=== PATIENT | female | born 1965 | race Caucasian/White ===

== ENCOUNTER 2018-08-11 12:48 | Observation (INO) ==
[2018-08-11] MEDS ORDERED: 0.9 % Sodium Chloride 1,000 ML IVC ONE (13:05)
[2018-08-11] MEDS ORDERED: Ondansetron ODT 4 MG TAB.RAPDIS SL ONE (13:05)
[2018-08-11] MEDS: Nitroglycerin 0.4 MG TAB.SUBL SL ONE ×2 (13:14→15:37)
[2018-08-11 13:22] LABS: Basophils % 0.3 %; Eosinophils % 0.3 %; Hematocrit 39.8 % (35.3-44.9); Hemoglobin 13.5 g/dL (11.5-15.4); Immature Granulocytes % 0.4 % (0-4); Lymphocytes # 2.4 K/mcL (0.6-4.6); Lymphocytes % 23.9 %; Mean Corpuscular HGB Conc 33.9 g/dL (31.6-35.5); Mean Corpuscular Volume 88.4 fL (83.0-100.0); Mean Platelet Volume 10.1 fL (9.4-12.4); Monocytes # 0.5 K/mcL (0.0-1.3); Monocytes % 5.1 %; Neutrophils # 6.9 K/mcL (1.6-8.9); Platelet Count 283 K/mcL (140-400); Red Cell Distribution Width 13.3 % (11.5-14.5)
[2018-08-11 13:29] LABS: Prothrombin Time 11.2 Seconds (9.4-12.1)
[2018-08-11 13:42] LABS: Troponin I < 0.03 ng/mL (< 0.04)
[2018-08-11 13:44] LABS: BUN/Creatinine Ratio 25 (6-26); Blood Urea Nitrogen 19 mg/dL (6-20); Calcium 9.5 mg/dL (8.6-10.3); Carbon Dioxide 21 mEq/L (23-29); Chloride 108 mEq/L (98-107); Digoxin < 0.3 ng/mL (0.8-2.0); Glucose 113 mg/dL (70-105); Osmolality,Calculated 289 (280-300); Potassium 3.5 mEq/L (3.5-5.1); Sodium 138 mEq/L (136-145); eGFR For Non-African Americans > 60 (> 60)
[2018-08-11] MEDS: Isovue-370 500 ML BOTTLE IVP ONE ×2 (14:19→14:20)
--- NOTE | 2018-08-11 14:55 | Emergency Department Note ---
Disposition Clinical Impression: Chest pain Qualifiers: Chest pain type: unspecified Qualified Code(s): R07.9 - Chest pain, unspecified Disposition: Admitted As Inpatient Condition: Fair Time of Disposition: 15:10 Chest Pain HPI - General Chief Complaint: ED Chest Pain Stated Complaint: CP,SONJA Time Seen by Provider: 08/11/18 12:49 Source: patient Limitations: no limitations Vital Signs Reviewed: Yes Nursing Notes Reviewed: Yes - History of Present Illness HPI Narrative: 53 yo female with PMHx of MS and afib on digoxin presents to the ED with sudden onset chest pain and shortness of breath. She states she was sitting at her desk when she noticed severe sudden onset chest pain radiating into her neck and back. She has never had pain like this before. She first thought it was indigestion but then it worsened. At its worst it is an 8/10, currently it is a 5/10. She feels nauseous and has thrown up. She denies sensory changes or weakness of her limbs. Pt has not recently travelled, has no history of blood clots and is not on hormonal therapy. There is no family history of heart disease, except her mother who had an ND at age 70. Severity scale (1-10): 6 - Related Data Allergies Allergy/AdvReac Type Severity Reaction Status Date / Time codeine Allergy Swelling Verified 08/11/18 12:57 of Lip/Tongue/Throat prochlorperazine Allergy Anxiety Verified 08/11/18 12:57 [From Compazine] Sulfa (Sulfonamide Allergy Rash Verified 08/11/18 12:57 Antibiotics) All systems ED: reviewed and negative except as stated. Review of Systems: As Per HPI Constitutional: Denies: fever, chills, weakness Cardiovascular: Reports: chest pain, dyspnea on exertion. Denies: palpitations, edema, syncope Respiratory: Reports: dyspnea. Denies: cough, wheezes Gastrointestinal: Reports: nausea, vomiting. Denies: abdominal pain, diarrhea, hematemesis, melena, hematochezia Genitourinary: Denies: dysuria, hematuria Musculoskeletal: Reports: back pain, neck pain Integumentary: Denies: rash Neurological: Denies: headache, weakness, numbness, paresthesias Endocrine: Denies: fatigue Chest Pain PMH - Past Medical History Medical history: Reports: atrial fibrillation Psychiatric history: Reports: anxiety - Social History Smoking Status: Never smoker Alcohol use: Reports: none Drug use: Reports: none Physical Exam Pt appears very anxious. No tenderness to palpation of chest or back. Pulses palpable in all 4 extremities. - General Limitations: no limitations General appearance: alert, anxious - Head Head exam: atraumatic, normocephalic - Eye Eye exam: Present: normal appearance, PERRL, EOMI - ENT ENT exam: normal exam, normal oropharynx - Neck Neck exam: Present: normal inspection. Absent: tenderness, lymphadenopathy - Chest Chest inspection: Present: normal inspection, symmetric chest wall rise. Absent: tenderness, rash - Respiratory Respiratory exam: Present: normal lung sounds bilaterally. Absent: wheezes - Cardiovascular Cardiovascular exam: Present: regular rate, normal rhythm - Abdominal Exam Abdominal exam: Present: soft, Non-Tender. Absent: distention, guarding, rebound, rigidity, Fong's sign, Rovsing's sign, tenderness at McBurney's Point - Extremities Exam Extremities exam: Present: normal inspection. Absent: tenderness, pedal edema, calf tenderness - Neurological Exam Neurological exam: Present: alert, oriented X3, CN II-XII intact. Absent: motor sensory deficit - Psychiatric Psychiatric exam: Present: anxious - Skin Skin exam: Present: warm, dry, intact Course Vital Signs Temperature 98.2 F 08/11/18 12:53 Pulse Rate 88 08/11/18 12:53 Respiratory Rate 16 08/11/18 12:53 Blood Pressure 114/70 08/11/18 12:53 O2 Sat by Pulse Oximetry 100 08/11/18 12:53 Temperature 98.2 F 08/11/18 12:53 Pulse Rate 75 08/11/18 13:15 Respiratory Rate 18 08/11/18 13:15 Blood Pressure 99/68 08/11/18 13:15 O2 Sat by Pulse Oximetry 100 08/11/18 13:15 Oxygen Delivery Oxygen Delivery Room Air Chest Pain - MDM Narrative Medical decision making narrative: This patient with afib on digoxin 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 We will do a chest pain workup and give her SL nitro and zofran for nausea, and do a CTA to rule out dissection. 1500 - CTA did not reveal a dissection or PE. Pts pain was relieved by the SL nitro. We will admit to hospitalist for further CP workup. - Medical Records Medical records reviewed: Yes I reviewed the patient's medical records. - Lab Data Lab results reviewed: Yes I reviewed the patient's lab results. Result diagrams: 08/11/18 13:08 08/11/18 13:08 Lab Results 08/11/18 08/11/18 08/11/18 Range/Units 13:08 13:08 13:08 WBC 9.9 (4.3-11.1) K/mcL RBC 4.50 (3.82-4.97) M/mcL Hgb 13.5 (11.5-15.4) g/dL Hct 39.8 (35.3-44.9) % MCV 88.4 (83.0-100.0) fL MCH 30.0 (28.0-33.3) pg MCHC 33.9 (31.6-35.5) g/dL RDW 13.3 (11.5-14.5) % Plt Count 283 (140-400) K/mcL MPV 10.1 (9.4-12.4) fL Immature Gran % 0.4 (0-4) % Seg Neutrophils % 70.0 % Lymphocytes % 23.9 % Monocytes % 5.1 % Eosinophils % 0.3 % Basophils % 0.3 % Neutrophils # 6.9 (1.6-8.9) K/mcL Lymphocytes # 2.4 (0.6-4.6) K/mcL Monocytes # 0.5 (0.0-1.3) K/mcL Eosinophils # 0.0 (0.0-0.6) K/mcL Basophils # 0.0 (0.0-0.2) K/mcL PT 11.2 (9.4-12.1) Seconds INR 1.0 APTT 32.0 (26.0-36.0) Seconds Sodium 138 (136-145) mEq/L Potassium 3.5 (3.5-5.1) mEq/L Chloride 108 H (98-107) mEq/L Carbon Dioxide 21 L (23-29) mEq/L BUN 19 (6-20) mg/dL Creatinine 0.76 (0.60-1.20) mg/dL Est GFR ( Amer) > 60 (> 60) Est GFR (Non-Af Amer) > 60 (> 60) BUN/Creatinine Ratio 25 (6-26) Glucose 113 H (70-105) mg/dL Calculated Osmolality 289 (280-300) Calcium 9.5 (8.6-10.3) mg/dL Troponin I < 0.03 (< 0.04) ng/mL Digoxin < 0.3 L (0.8-2.0) ng/mL - Radiology Data Radiology results reviewed: Yes I reviewed the patient's radiology results. - EKG Data EKG attestation: Yes I reviewed and interpreted this EKG. EKG results narrative: EKG obtained at 1259 on 08/11/2018 HR 87 bpm, pr interval 153, QRS duration 120, QT 377, QTc 454 Sinus rhythm without any ST segment elevations or depressions. No signs of arrhythmias. No old EKG for comparison. Heart Score - Score History: Slightly Suspicious EKG: Normal Age: 45-65 Risk Factors: No risk factors known Troponin: Less than normal limit HEART Score Total: 1
--- NOTE | 2018-08-11 15:12 | Emergency Department Note ---
Disposition Clinical Impression: Chest pain Qualifiers: Chest pain type: unspecified Qualified Code(s): R07.9 - Chest pain, unspecified Disposition: Admitted As Inpatient Forms: ED Satisfaction Letter General Adult HPI - General Chief complaint: ED Chest Pain Stated complaint: CP,SONJA Time Seen by Provider: 08/11/18 12:49 Source: patient Limitations: no limitations - History of Present Illness Pain Scale: 6 - Related Data Allergies Allergy/AdvReac Type Severity Reaction Status Date / Time codeine Allergy Swelling Verified 08/11/18 12:57 of Lip/Tongue/Throat prochlorperazine Allergy Anxiety Verified 08/11/18 12:57 [From Compazine] Sulfa (Sulfonamide Allergy Rash Verified 08/11/18 12:57 Antibiotics) Past Medical History - Past Medical History Medical history: Reports: atrial fibrillation Psychiatric history: Reports: anxiety - Social History Smoking Status: Never smoker Smokeless Tobacco Status: No Alcohol use: Reports: none Drug use: Reports: none Physical Exam - General Limitations: no limitations General appearance: alert, in no apparent distress Course Vital Signs Temperature 98.2 F 08/11/18 12:53 Pulse Rate 88 08/11/18 12:53 Respiratory Rate 16 08/11/18 12:53 Blood Pressure 114/70 08/11/18 12:53 O2 Sat by Pulse Oximetry 100 08/11/18 12:53 Temperature 98.2 F 08/11/18 12:53 Pulse Rate 75 08/11/18 13:15 Respiratory Rate 18 08/11/18 13:15 Blood Pressure 99/68 08/11/18 13:15 O2 Sat by Pulse Oximetry 100 08/11/18 13:15 Oxygen Delivery Oxygen Delivery Room Air Medical Decision Making - Lab Data Result diagrams: 08/11/18 13:08 08/11/18 13:08 Lab Results 08/11/18 08/11/18 08/11/18 Range/Units 13:08 13:08 13:08 WBC 9.9 (4.3-11.1) K/mcL RBC 4.50 (3.82-4.97) M/mcL Hgb 13.5 (11.5-15.4) g/dL Hct 39.8 (35.3-44.9) % MCV 88.4 (83.0-100.0) fL MCH 30.0 (28.0-33.3) pg MCHC 33.9 (31.6-35.5) g/dL RDW 13.3 (11.5-14.5) % Plt Count 283 (140-400) K/mcL MPV 10.1 (9.4-12.4) fL Immature Gran % 0.4 (0-4) % Seg Neutrophils % 70.0 % Lymphocytes % 23.9 % Monocytes % 5.1 % Eosinophils % 0.3 % Basophils % 0.3 % Neutrophils # 6.9 (1.6-8.9) K/mcL Lymphocytes # 2.4 (0.6-4.6) K/mcL Monocytes # 0.5 (0.0-1.3) K/mcL Eosinophils # 0.0 (0.0-0.6) K/mcL Basophils # 0.0 (0.0-0.2) K/mcL PT 11.2 (9.4-12.1) Seconds INR 1.0 APTT 32.0 (26.0-36.0) Seconds Sodium 138 (136-145) mEq/L Potassium 3.5 (3.5-5.1) mEq/L Chloride 108 H (98-107) mEq/L Carbon Dioxide 21 L (23-29) mEq/L BUN 19 (6-20) mg/dL Creatinine 0.76 (0.60-1.20) mg/dL Est GFR ( Amer) > 60 (> 60) Est GFR (Non-Af Amer) > 60 (> 60) BUN/Creatinine Ratio 25 (6-26) Glucose 113 H (70-105) mg/dL Calculated Osmolality 289 (280-300) Calcium 9.5 (8.6-10.3) mg/dL Troponin I < 0.03 (< 0.04) ng/mL Digoxin < 0.3 L (0.8-2.0) ng/mL Attestation Statement - Attestation Attestation: I examined this patient and my medical decision-making was reviewed with the Resident Physician. I agree with the documented findings, disposition and treatment plan as described except to the extent set forth below. 53 year old female presents to the ED with complaints of chest pain and appears diaphoretic and has exertional dyspnea. PAtinet nitro SL did help her with her chest pain that radiates to her back and causes some nausea. Patinet cardiop ulmonary workup is stable with negtive troponin and nonischemic eKG. We have admitted patient ot medicine for ACS, CTA neg for dissection/PE
--- NOTE | 2018-08-11 15:54 | Internal Med History&Physical ---
Date of Encounter: 08/11/18 Time of Encounter: 15:00 Internal Medicine - H&P: HPI Chief complaint: Chest pain Admitted From: Home History of present illness: Patient is a 53-year-old female with past medical history significant for atrial fibrillation, migraine headaches and mood disorder who presents to the ER on 08/11/18 due to chest pain. Patient reports that while at work this afternoon she developed substernal chest discomfort which she describes as pressure with a severity of 8 out of 10 rating up right side of her neck in addition to left shoulder and both sides of jaw. Patient reported associated symptoms of diaphoresis and shortness of breath but denied any provoking or relieving factors. Patient did report that receiving nitroglycerin in the ER that did give some relief in symptoms and severity is now a 3 out of 10. In the ER, patients first set of troponins were negative. CT dissection was also negative for any acute findings. Patient will be admitted to the observation unit for ACS rule out. Past Med Surg Social Fam HX - Past Medical History Medical history: atrial fibrillation Additional medical history: MS Psychiatric history: anxiety - Past Surgical History Surgical History: non-contributory - Social History Smoking Status: Never smoker Smokeless Tobacco Status: No Alcohol use: none Drug use: none - Additional Family History Additional family history: Mom and maternal grandmother-coronary arterial disease Internal Medicine - H&P: Meds Allergy/AdvReac Type Severity Reaction Status Date / Time codeine Allergy Swelling Verified 08/11/18 12:57 of Lip/Tongue/Throat prochlorperazine Allergy Anxiety Verified 08/11/18 12:57 [From Compazine] Sulfa (Sulfonamide Allergy Rash Verified 08/11/18 12:57 Antibiotics) All Systems PM: A 10-system review of systems was performed and is negative for pertinent findings except as documented above in the HPI. - Constitutional Vitals: Temp Pulse Resp BP Pulse Ox 98.2 F 75 12 106/72 99 08/11/18 12:53 08/11/18 15:30 08/11/18 15:30 08/11/18 15:30 08/11/18 15:30 General appearance: Present: A&O X 3, no acute distress Exam: As above - Head Head exam: Present: normocephalic - Eye Eye exam: Present: normal appearance - ENT ENT exam: Present: mucous membranes moist - Respiratory Respiratory exam: Present: CTAB. Absent: accessory muscle use, rales, rhonchi, wheezes - Cardiovascular Cardiovascular exam: Present: RRR, +S1, +S2. Absent: diastolic murmur, gallop, rubs, systolic murmur - GI/Abdominal GI/Abdominal exam: Present: normal bowel sounds, soft, no peritoneal signs. Absent: distended, tenderness - Extremities Exam Extremities exam: Absent: pedal edema - Neurological Exam Neurological exam: Present: alert, oriented X3, no focal deficits. Absent: altered - Psychiatric Psychiatric exam: Present: normal mood - Skin Skin exam: Present: normal color Internal Med - H&P Results - Labs CBC & Chem 7: 08/11/18 13:08 08/11/18 13:08 Labs: Short CBC 08/11/18 Range/Units 13:08 WBC 9.9 (4.3-11.1) K/mcL Hgb 13.5 (11.5-15.4) g/dL Hct 39.8 (35.3-44.9) % Plt Count 283 (140-400) K/mcL Neutrophils # 6.9 (1.6-8.9) K/mcL BMP 08/11/18 13:08 Sodium 138 Potassium 3.5 Chloride 108 H Carbon Dioxide 21 L BUN 19 Creatinine 0.76 Glucose 113 H Calcium 9.5 Cardiac Enzymes 08/11/18 Range/Units 13:08 Troponin I < 0.03 (< 0.04) ng/mL - Impressions ITS Impressions Chest X-Ray 08/11/18 13:02 IMPRESSION: No acute cardiopulmonary disease. D/ / Yancy Wakefield MD / Yancy Wakefield MD Interpreting Provider: Yancy Wakefield MD Dissection 08/11/18 13:06 IMPRESSION: No thoracic aortic aneurysm or pulmonary emboli identified. No appreciable atherosclerotic disease seen within the aorta, coronary arteries or elsewhere, though the study in the chest is somewhat degraded by cardiac motion. No acute parenchymal process is seen in the lungs. No spiculated lung mass or lymphadenopathy in the chest. Mild dilation of the proximal transverse duodenum measuring up to 3.7 cm in size, with mildly prominent loops of jejunum seen beyond the ligament of Treitz as well. No significant wall thickening is identified. The bowel is mostly distended by air. Question if this is just related to transient peristalsis, versus a mild small-bowel ileus. The former is favored. No acute intra-or pelvic process is otherwise seen. D/ / Vincenzo Watters MD / Vincenzo Watters MD Interpreting Provider: Vincenzo Watters MD - Assessment and plan (1) Chest pain Current Visit: Yes Status: Acute Assessment and plan: Patient presents with substernal chest pain improved with nitroglycerin First set of troponins in the ER negative and EKG reviewed by myself did not show any ST/T-wave changes. Will trend serial troponins and monitor on telemetry Will also order echocardiogram and plan for nuclear medicine stress tests in the a.m. if troponins negative. Qualifiers: Chest pain type: unspecified Qualified Code(s): R07.9 - Chest pain, unspecified (2) Atrial fibrillation Current Visit: Yes Status: Acute Assessment and plan: Patient with a digoxin level less than 0.3 Continue patient's home dose of digoxin as well as recently adjusted by cardiology per patient Qualifiers: Atrial fibrillation type: chronic Qualified Code(s): I48.2 - Chronic atrial fibrillation (3) Migraine Current Visit: Yes Status: Acute Assessment and plan: continue patient's home dose of Topamax Qualifiers: Migraine type: unspecified Intractability: not intractable Qualified Code(s): G43.909 - Migraine, unspecified, not intractable, without status migrainosus (4) Mood disorder Current Visit: Yes Status: Acute Assessment and plan: Will continue patient's home dose of Lexapro as well as trazodone (5) DVT prophylaxis Current Visit: Yes Status: Acute Assessment and plan: Heparin subcutaneous - Time Spent With Patient Total time spent is greater than 50% in coordination of care (as documented) at patient's floor/unit and/or counseling patient:
[2018-08-11] MEDS ORDERED: Naloxone 0.4 MG/ML INJ IVP PRN (16:18)
[2018-08-11] MEDS ORDERED: Perflutren Lipid Microsphere 1.3 ML in 0.9 % Sodium Chloride 8.7 ML IVP ONE (20:20)
[2018-08-11] MEDS: *HR* Heparin 5,000 UNIT/ML VIAL SQ SCH (21:19)
[2018-08-11] MEDS ORDERED: Acetaminophen 325 MG TABLET PO ONE (21:21)
[2018-08-12 01:48] LABS: Basophils % 0.3 %; Eosinophils # 0.1 K/mcL (0.0-0.6); Eosinophils % 0.9 %; Hematocrit 34.1 % (35.3-44.9); Immature Granulocytes % 0.3 % (0-4); Lymphocytes # 2.5 K/mcL (0.6-4.6); Lymphocytes % 37.7 %; Mean Corpuscular HGB Conc 33.7 g/dL (31.6-35.5); Mean Corpuscular Hemoglobin 29.6 pg (28.0-33.3); Mean Corpuscular Volume 87.7 fL (83.0-100.0); Mean Platelet Volume 10.1 fL (9.4-12.4); Monocytes # 0.6 K/mcL (0.0-1.3); Monocytes % 8.4 %; Neutrophils # 3.5 K/mcL (1.6-8.9); Platelet Count 227 K/mcL (140-400); Red Blood Count 3.89 M/mcL (3.82-4.97); Red Cell Distribution Width 13.5 % (11.5-14.5); Segmented Neutrophils % 52.4 %
[2018-08-12 01:57] LABS: Hemoglobin 11.5 g/dL (11.5-15.4)
[2018-08-12 01:58] LABS: BUN/Creatinine Ratio 17 (6-26); Blood Urea Nitrogen 12 mg/dL (6-20); Calcium 8.9 mg/dL (8.6-10.3); Carbon Dioxide 21 mEq/L (23-29); Chloride 111 mEq/L (98-107); Glucose 93 mg/dL (70-105); Osmolality,Calculated 287 (280-300); Potassium 3.5 mEq/L (3.5-5.1); Sodium 139 mEq/L (136-145); eGFR For Non-African Americans > 60 (> 60)
[2018-08-12] MEDS: *HR* Heparin 5,000 UNIT/ML VIAL SQ SCH ×2 (05:18→13:02)
[2018-08-12] MEDS ORDERED: SUMAtriptan succinate 50 MG TABLET PO PRN (08:00)
[2018-08-12] MEDS ORDERED: traMADol 50 MG TABLET PO PRN (08:00)
[2018-08-12] MEDS ORDERED: Diltiazem CD (24hr) 120 MG CAPSULE PO SCH (09:00)
[2018-08-12] MEDS ORDERED: Topiramate 25 MG TABLET PO SCH (09:00)
[2018-08-12] MEDS ORDERED: Multivit/Ca/Min/Fe/FA 1 TAB TABLET PO SCH (09:00)
[2018-08-12] MEDS ORDERED: Acetaminophen 325 MG TABLET PO PRN (11:18)
[2018-08-12] MEDS ORDERED: Regadenoson 0.4 MG/5 ML SYRINGE IVP ONE (11:19)
--- NOTE | 2018-08-12 14:50 | Discharge Summary ---
- NOTES TO OUTPATIENT PROVIDER Notes to Outpatient Provider: Similar chest pain troponins were negative underwent stress test which was negative for any ischemia or infarct echo showed EF 55% normal LV function Orders not resulted at time of discharge: Pending orders 08/12/18 08:02 NM willy perf SPECT multi [NM] Routine Date of Encounter: 08/12/18 Time of Encounter: 14:47 - Discharge Diagnosis (1) Chest pain Priority: Primary Status: Acute Qualifiers: Chest pain type: unspecified Qualified Code(s): R07.9 - Chest pain, unspecified (2) Atrial fibrillation Priority: Secondary Status: Acute Qualifiers: Atrial fibrillation type: chronic Qualified Code(s): I48.2 - Chronic atrial fibrillation (3) Migraine Priority: Secondary Status: Acute Qualifiers: Migraine type: unspecified Intractability: not intractable Qualified Code(s): G43.909 - Migraine, unspecified, not intractable, without status migrainosus (4) Mood disorder Priority: Secondary Status: Acute Hospital course: Ms. Anderson is a 53 year old female past medical history of atrial fibrillation migraine headaches and mood disorder presented to [facility] ER on 08/11/18 with c omplaints of chest pain with associated symptoms of diaphoresis and shortness of breath. Troponins were negative 3 CT A was negative for any acute findings. EKG with no ST-T wave abnormalities. She did undergo a nuclear stress test which was negative for any ischemia or infarct. Echocardiogram was completed was initially 55% normal left ventricular diastolic function atypical septal motion normal right ventricular structure and function mild tricuspid regurgitation and pulmonary hypertension. She denies any chest pain at this time and did not have any chest pain during admission. She did have a migraine post stress test which improved after receiving Imitrex and vomiting. Advised patient follow-up with primary care provider since this provider knows her best and can adjust medications accordingly currently patient is hemodynamically stable and is ready for discharge Discharge discussed with: patient - Time Spent with Patient Total time spent providing and/or coordinating discharge services: - Discharge Medications Home Medications: Escitalopram [Lexapro] 10 mg PO DAILY 08/11/18 [History] Multivitamin [Daily Multiple Vitamin] 1 tab PO DAILY 08/11/18 [History] SUMAtriptan Succinate [Imitrex] 100 mg PO DAILY PRN 08/11/18 [History] Topiramate [Topamax] 50 mg PO BID 08/11/18 [History] Tramadol HCl [Ultram] 50 mg PO QID PRN 08/11/18 [History] dilTIAZem HCl [Diltiazem 24Hr ER] 120 mg PO BID 08/11/18 [History] Allergies/Adverse Reactions: Allergy/AdvReac Type Severity Reaction Status Date / Time codeine Allergy Swelling Verified 08/11/18 12:57 of Lip/Tongue/Throat prochlorperazine Allergy Anxiety Verified 08/11/18 12:57 [From Compazine] Sulfa (Sulfonamide Allergy Rash Verified 08/11/18 12:57 Antibiotics) metoclopramide [From Reglan] AdvReac Agitated Verified 08/11/18 22:00 Date of admission: 08/11/18 15:25 Primary care physician: Huma Fonseca CNP Discharging clinician: Corry Acuna Anticipated date of discharge: 08/12/18 - Constitutional Vitals: Temp Pulse Resp BP Pulse Ox 98.1 F 79 15 121/72 97 08/12/18 11:33 08/12/18 11:33 08/12/18 11:33 08/12/18 11:33 08/12/18 11:33 General appearance: Present: A&O X 3, no acute distress Exam: . - Head Head exam: Present: atraumatic, normocephalic - Eye Eye exam: Present: PERRL, conjuntiva pink, sclera anicteric Pupils: Present: PERRL - Neck Neck exam general surgery: Present: supple, trachea midline. Absent: lymphadenopathy - Respiratory Respiratory exam: Present: CTAB. Absent: accessory muscle use, rales, rhonchi, wheezes - Cardiovascular Cardiovascular exam: Present: RRR, +S1, +S2. Absent: diastolic murmur, gallop, rubs, systolic murmur - GI/Abdominal GI/Abdominal exam: Present: normal bowel sounds, soft, no peritoneal signs. Absent: distended, tenderness - Extremities Exam Extremities exam: Present: warm, radial pulses palpable and symmetrical. Absent: calf tenderness, cyanotic, pedal edema - Neurological Exam Neurological exam: Present: CN II-XII intact, oriented X3, no focal deficits. Absent: pronater drift, facial droop, speech deficit - Skin Skin exam: Present: dry, intact - Patient Status Disposition: Home, Self-Care Condition: Fair Functional capacity at discharge: independent ambulation Overall status at discharge: patient is back to baseline - Discharge Instructions Instructions: Atrial Fibrillation (DC), Chest Pain (DC) Follow Up With: Huma Fonseca CNP [Primary Care Provider] - 08/24/18 8:00 am (please arrive 15 minutes early to appointment . ) - Diet and Activity Activity: increase activity as tolerated Diet: advance to your usual diet
[2018-08-12 15:18] VITALS: BP 123/76
--- NOTE | 2018-08-13 10:01 | Electrocardiograph Report ---
[address] [place], [place] [address] Test Date: 2018-08-12 Pat Name: Diana Anderson Department: 113 Room: 3B44 Gender: F Sparmaker: : 1965 Requested By: Corry Acuna Order Number: [id number] Reading MD: Lara Panye Measurements Intervals [place] Rate: 62 P: 78 GA: 156 QRS: 87 QRSD: 101 T: 64 QT: 390 QTc: 394 Interpretive Statements SINUS RHYTHM WITH SINUS ARRHYTHMIA Electronically Signed On 08-13-2018 9:59:16 EST by Lara Payne
--- NOTE | 2018-08-14 05:23 | Electrocardiograph Report ---
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
== END 2018-08-12 15:47 | disposition home or self-care (01) ==
LOC: EMEROOARM 12:48 → 3BNU 12:48
PROVIDERS: ADMIT Student in an Organized Health Care Education/Training Program; ATTEND Student in an Organized Health Care Education/Training Program

== ENCOUNTER 2021-05-27 08:19 | Inpatient (IN) ==
[2021-05-27 09:49] LABS: Basophils % 0.2 %; Eosinophils % 0.1 %; Hematocrit 45.2 % (35.3-44.9); Immature Granulocytes % 0.3 % (0-4); Lymphocytes # 2.3 K/mcL (0.6-4.6); Lymphocytes % 12.9 %; Mean Corpuscular HGB Conc 33.2 g/dL (31.6-35.5); Mean Corpuscular Hemoglobin 29.3 pg (28.0-33.3); Mean Corpuscular Volume 88.3 fL (83.0-100.0); Mean Platelet Volume 10.4 fL (9.4-12.4); Monocytes # 0.8 K/mcL (0.0-1.3); Monocytes % 4.2 %; Neutrophils # 14.8 K/mcL (1.6-8.9); Platelet Count 384 K/mcL (140-400); Red Blood Count 5.12 M/mcL (3.82-4.97); Segmented Neutrophils % 82.3 %
[2021-05-27] MEDS ORDERED: 0.9 % Sodium Chloride 1,000 ML IVC ONE (10:07)
[2021-05-27 10:09] LABS: BUN/Creatinine Ratio 28 (6-26); Blood Urea Nitrogen 26 mg/dL (6-20); Calcium 9.4 mg/dL (8.6-10.3); Carbon Dioxide 17 mEq/L (23-29); Chloride 100 mEq/L (98-107); Glucose 83 mg/dL (70-105); Osmolality,Calculated 282 (280-300); Potassium 4.3 mEq/L (3.5-5.1); Sodium 134 mEq/L (136-145); eGFR For African Americans > 60 (> 60); eGFR For Non-African Americans > 60 (> 60)
[2021-05-27] MEDS ORDERED: Ondansetron 4 MG/2 ML VIAL IVP ONE (10:17)
[2021-05-27] MEDS ORDERED: *HR* FentaNYL (PF) 100 MCG/2 ML VIAL IVP ONE ×2 (10:19→15:09)
[2021-05-27] MEDS ORDERED: Isovue-370 500 ML BOTTLE IVP ONE (11:27)
[2021-05-27] MEDS ORDERED: Isovue-370 500 ML BOTTLE PO ONE (11:45)
[2021-05-27 11:54] LABS: Bacteria,Urine Few per hpf (None-Few); Bilirubin,Urine Small (Negative); Blood,Urine Trace (Negative); Clarity,Urine Turbid (Clear); Color,Urine Yellow (Yellow); Glucose,Urine (UA) Normal (Normal); Hyaline Casts,Urine Moderate per lpf (None Seen); Ketones,Urine >150 mg/dL (Negative); Leukocyte Esterase,Urine Negative (Negative); Mucus,Urine Few per lpf (None-Few); Nitrite,Urine Negative (Negative); Protein,Urine 50 mg/dL (Neg-Trace); Specific Gravity,Urine 1.028 (1.010-1.025); Squamous Epithelial Cell,Urine Moderate per hpf (None-Few)
[2021-05-27 13:09] LABS: Alanine Aminotransferase 21 Units/L (7-52); Albumin 4.7 g/dL (3.5-5.7); Albumin/Globulin Ratio 1.4 (1.1-2.2); Alkaline Phosphatase 140 Units/L (34-104); Amylase 53 Units/L (29-103); Aspartate Amino Transferase 22 Units/L (13-39); Bilirubin,Indirect 0.3 mg/dL (0.0-1.0); Bilirubin,Total 0.3 mg/dL (0.3-1.0); Globulin 3.4 g/dL (2.4-3.5); Lipase 8 Units/L (11-82); Total Protein 8.1 g/dL (6.4-8.9)
[2021-05-27] MEDS ORDERED: Piperacillin/Tazobactam 3.375 GM in 0.9 % Sodium Chloride Mini Bag 100 ML IVPB ONE (14:18)
[2021-05-27] MEDS ORDERED: Naloxone 0.4 MG/ML INJ IVP PRN (14:28)
[2021-05-27] MEDS ORDERED: *HR* HYDROmorphone (PF) 1 MG/ML SYRINGE IVP PRN (14:31)
[2021-05-27] MEDS ORDERED: *HR* Metoprolol 5 MG/5 ML VIAL IVP PRN (14:33)
[2021-05-27] MEDS ORDERED: 0.9 % Sodium Chloride 500 ML IVC ONE (14:51)
[2021-05-27] MEDS: 0.9 % Sodium Chloride 1,000 ML IVC SCH (18:25)
[2021-05-27] MEDS: Ondansetron 4 MG/2 ML VIAL IVP PRN (21:42)
[2021-05-28] MEDS: Piperacillin/Tazobactam 3.375 GM in 0.9 % Sodium Chloride Mini Bag 100 ML IVPB SCH ×4 (00:01→23:51)
[2021-05-28] MEDS: Ketorolac 15 MG/ML VIAL IVP PRN ×3 (03:22→20:39)
[2021-05-28] MEDS ORDERED: SUMAtriptan succinate 50 MG TABLET PO ONE (03:58)
[2021-05-28] MEDS ORDERED: Milk and Molasses Enema 200 ML RC ONE (06:00)
[2021-05-28] MEDS ORDERED: D5% in Water 1,000 ML IVC PRN (06:07)
[2021-05-28] MEDS ORDERED: *HR* Dextrose 50 % in Water (Syg) 50 ML SYRINGE IVP PRN (06:07)
[2021-05-28] MEDS ORDERED: Dextrose Gel 15 GM/37.5 ML TUBE PO PRN ×2 (06:07)
[2021-05-28 07:02] LABS: Basophils % 0.2 %; Eosinophils % 0.1 %; Hematocrit 34.9 % (35.3-44.9); Immature Granulocytes % 0.5 % (0-4); Lymphocytes # 1.8 K/mcL (0.6-4.6); Lymphocytes % 15.4 %; Mean Corpuscular HGB Conc 33.2 g/dL (31.6-35.5); Mean Corpuscular Hemoglobin 29.7 pg (28.0-33.3); Mean Corpuscular Volume 89.3 fL (83.0-100.0); Mean Platelet Volume 10.5 fL (9.4-12.4); Monocytes # 0.4 K/mcL (0.0-1.3); Monocytes % 3.6 %; Neutrophils # 9.5 K/mcL (1.6-8.9); Platelet Count 288 K/mcL (140-400); Red Blood Count 3.91 M/mcL (3.82-4.97); Red Cell Distribution Width 13.2 % (11.5-14.5); Segmented Neutrophils % 80.2 %; White Blood Count 11.9 K/mcL (4.3-11.1)
[2021-05-28 07:04] LABS: Hemoglobin 11.6 g/dL (11.5-15.4)
[2021-05-28 07:20] LABS: BUN/Creatinine Ratio 30 (6-26); Blood Urea Nitrogen 19 mg/dL (6-20); Calcium 7.9 mg/dL (8.6-10.3); Carbon Dioxide 15 mEq/L (23-29); Chloride 107 mEq/L (98-107); Glucose 227 mg/dL (70-105); Osmolality,Calculated 285 (280-300); Potassium 4.4 mEq/L (3.5-5.1); Sodium 133 mEq/L (136-145); eGFR For African Americans > 60 (> 60); eGFR For Non-African Americans > 60 (> 60)
[2021-05-28] MEDS: 0.9 % Sodium Chloride 1,000 ML IVC SCH ×2 (09:37→20:38)
[2021-05-28] MEDS: DilTIAZem CD (24hr) 120 MG CAP.ER.24H PO SCH (12:59)
[2021-05-28] MEDS: Topiramate 25 MG TABLET PO SCH (20:38)
[2021-05-28] MEDS: Ondansetron 4 MG/2 ML VIAL IVP PRN (20:39)
[2021-05-29 05:18] LABS: Basophils % 0.6 %; Eosinophils # 0.1 K/mcL (0.0-0.6); Eosinophils % 2.1 %; Hematocrit 30.8 % (35.3-44.9); Immature Granulocytes % 0.5 % (0-4); Lymphocytes # 1.9 K/mcL (0.6-4.6); Lymphocytes % 29.2 %; Mean Corpuscular HGB Conc 32.5 g/dL (31.6-35.5); Mean Corpuscular Hemoglobin 28.7 pg (28.0-33.3); Mean Corpuscular Volume 88.3 fL (83.0-100.0); Mean Platelet Volume 10.1 fL (9.4-12.4); Monocytes # 0.5 K/mcL (0.0-1.3); Monocytes % 7.8 %; Neutrophils # 3.9 K/mcL (1.6-8.9); Platelet Count 211 K/mcL (140-400); Red Blood Count 3.49 M/mcL (3.82-4.97); Segmented Neutrophils % 59.8 %; White Blood Count 6.5 K/mcL (4.3-11.1)
[2021-05-29 05:33] LABS: BUN/Creatinine Ratio 17 (6-26); Blood Urea Nitrogen 9 mg/dL (6-20); Calcium 7.6 mg/dL (8.6-10.3); Carbon Dioxide 19 mEq/L (23-29); Chloride 112 mEq/L (98-107); Glucose 88 mg/dL (70-105); Magnesium 1.7 mg/dL (1.6-2.6); Osmolality,Calculated 284 (280-300); Phosphorous 1.4 mg/dL (2.7-4.5); Potassium 3.8 mEq/L (3.5-5.1); Sodium 138 mEq/L (136-145); eGFR For African Americans > 60 (> 60); eGFR For Non-African Americans > 60 (> 60)
[2021-05-29] MEDS: 0.9 % Sodium Chloride 1,000 ML IVC SCH ×2 (08:49→19:33)
[2021-05-29] MEDS: Piperacillin/Tazobactam 3.375 GM in 0.9 % Sodium Chloride Mini Bag 100 ML IVPB SCH ×3 (08:56→23:46)
[2021-05-29] MEDS: DilTIAZem CD (24hr) 120 MG CAP.ER.24H PO SCH (08:58)
[2021-05-29] MEDS: Topiramate 25 MG TABLET PO SCH ×2 (08:58→19:56)
[2021-05-29] MEDS: Acetaminophen 325 MG TABLET PO PRN ×2 (13:08→19:56)
[2021-05-29] MEDS: Ondansetron 4 MG/2 ML VIAL IVP PRN (21:59)
[2021-05-29] MEDS ORDERED: SODIUM CHLORIDE/NAHCO3/KCL/PEG 4,000 ML SOLN.RECON PO ONE (23:03)
[2021-05-30 05:45] LABS: Basophils # 0.1 K/mcL (0.0-0.2); Basophils % 0.8 %; Eosinophils # 0.1 K/mcL (0.0-0.6); Eosinophils % 1.7 %; Hematocrit 30.8 % (35.3-44.9); Hemoglobin 10.6 g/dL (11.5-15.4); Immature Granulocytes % 0.2 % (0-4); Lymphocytes # 1.9 K/mcL (0.6-4.6); Lymphocytes % 29.8 %; Mean Corpuscular HGB Conc 34.4 g/dL (31.6-35.5); Mean Corpuscular Volume 87.3 fL (83.0-100.0); Mean Platelet Volume 10.1 fL (9.4-12.4); Monocytes # 0.4 K/mcL (0.0-1.3); Monocytes % 6.8 %; Neutrophils # 3.9 K/mcL (1.6-8.9); Platelet Count 219 K/mcL (140-400); Red Blood Count 3.53 M/mcL (3.82-4.97); Segmented Neutrophils % 60.7 %; White Blood Count 6.4 K/mcL (4.3-11.1)
[2021-05-30 05:55] LABS: BUN/Creatinine Ratio 16 (6-26); Blood Urea Nitrogen 8 mg/dL (6-20); Calcium 8.2 mg/dL (8.6-10.3); Carbon Dioxide 22 mEq/L (23-29); Chloride 108 mEq/L (98-107); Glucose 74 mg/dL (70-105); Osmolality,Calculated 283 (280-300); Potassium 3.6 mEq/L (3.5-5.1); Sodium 138 mEq/L (136-145); eGFR For African Americans > 60 (> 60); eGFR For Non-African Americans > 60 (> 60)
[2021-05-30] MEDS: Topiramate 25 MG TABLET PO SCH ×2 (07:39→20:27)
[2021-05-30] MEDS: Ketorolac 15 MG/ML VIAL IVP PRN (07:40)
[2021-05-30] MEDS ORDERED: Lidocaine -MPF 2% 5 ML VIAL ONE (10:16)
[2021-05-30] MEDS ORDERED: *HR* Propofol 200 MG/20 ML VIAL IVP ONE ×2 (10:16→11:09)
[2021-05-30] MEDS ORDERED: SODIUM CHLORIDE/NAHCO3/KCL/PEG 4,000 ML SOLN.RECON PO ONE (11:46)
[2021-05-30] MEDS: Piperacillin/Tazobactam 3.375 GM in 0.9 % Sodium Chloride Mini Bag 100 ML IVPB SCH ×2 (12:16→17:14)
[2021-05-30] MEDS ORDERED: Ketorolac 30 MG/ML VIAL IVP ONE (12:21)
[2021-05-30] MEDS: SODIUM CHLORIDE/NAHCO3/KCL/PEG 4,000 ML SOLN.RECON GTUBE SCH ×7 (14:27→23:30)
[2021-05-31] MEDS: Piperacillin/Tazobactam 3.375 GM in 0.9 % Sodium Chloride Mini Bag 100 ML IVPB SCH ×2 (00:28→08:29)
[2021-05-31] MEDS: SODIUM CHLORIDE/NAHCO3/KCL/PEG 4,000 ML SOLN.RECON GTUBE SCH ×3 (00:32→07:12)
[2021-05-31 07:58] VITALS: BP 124/65; PULSE 69; TEMP 97.6; O2SAT 97
[2021-05-31] MEDS: Topiramate 25 MG TABLET PO SCH (08:29)
== END 2021-05-31 11:30 | disposition home or self-care (01) | DRG 872 ==
LOC: 3ANU 08:19 → EMEROOARM 08:19 → SUATTDRO 15:59 → 3ANU 17:50 → SUATTDRO 05-30 14:43
PROVIDERS: ADMIT Student in an Organized Health Care Education/Training Program; ATTEND Pharmacist